=== PATIENT | female | born 1995 | race Hispanic/Latino ===

== ENCOUNTER 2017-11-13 16:42 | Emergency (ER) | payer OTHER ==
[~2017-11-13] VITALS: Ht 162.6 cm; Wt 55.8 kg
[~2017-11-13 16:42] MED LIST: MIRALAX3350 NF PO; NO MEDS
[2017-11-13] MEDS ORDERED: IBUPROFEN600 MG PO (17:16)
[2017-11-13] MEDS ORDERED: AMOXICILLIN875 MG PO (17:16)
[2017-11-13 17:20] VITALS: BP 131/82
== END 2017-11-13 17:20 | disposition home or self-care (01) ==
LOC: ED 16:42
DX: K04.7 Periapical abscess without sinus (principal); K08.89 Other specified disorders of teeth and supporting structures; R50.9 Fever, unspecified